=== PATIENT | male | born 1960 | race Caucasian/White ===

== ENCOUNTER → 2024-01-08 08:05 | Outpatient (REF) | payer BC, SELFPAY | LOC: HWRAD 08:05 | PROVIDERS: ATTENDING PHYSICIAN Orthopaedic Surgery | DX: M19.012 Primary osteoarthritis, left shoulder (principal) | CPT/HCPCS: 73200 ==

== ENCOUNTER 2024-10-01 02:05 | Emergency (ER) | payer OTHER, SELFPAY ==
[2024-10-01 02:11] VITALS: BP 154/86
[2024-10-01 04:21] VITALS: BP 113/74
--- NOTE | 2024-10-01 04:22 | ED.GENMED ---
History of Present Illness
General
Chief Complaint: Ear Problem
Source: patient
Exam Limitations: none
Time Seen by Provider: 10/01/24 04:11
Nursing documentation reviewed up to this point in time: agreed with
History of Present Illness
History of Present Illness:
This is a 64-year-old gentleman with history of hypertension, hyperlipidemia, intermittent sinus congestion and admits to following with his ENT specialist sporadically.
He admits to onset of cold symptoms, congestion of sinuses and ears, 1 week ago and was evaluated at urgent care where he was placed on a 5-day course of an antibiotic which he believes was Augmentin, finished yesterday. He was also placed on
Flonase nasal spray to be used for 30 days. He admits that nasal congestion, cough have improved but he continues with some left ear discomfort, intermittent brief crackling and has had intermittent brief ringing in his ear that it was initially
mild but now persistent since yesterday evening. He denies dizziness nor lightheadedness, no significant pain, no fever no chills, no headache, no weakness or numbness.
He admits to mildly decreased hearing in his left ear over the past week, unchanged.
Past History
Past History
ED Past Medical History: HTN and Hypercholesterolemia
ED Past Surgical History: Orthopedic
Social History
Tobacco: Non-smoker
Personal:
Living: with family
Employment: Employed
Family History
Family History: Other (Noncontributory)
Phy Exam
Physical Exam
Physical Exam:
GENERAL: 64-year-old gentleman appears somewhat younger than stated age, bright and alert, pleasant, appears in no acute distress.
EYE: pupils equal and reactive. anicteric
NECK: Supple, nontender, no meningismus, no significant adenopathy.
ENT: posterior pharynx is clear, oral mucosa is moist. TMs bilaterally without injection nor retraction. There is scant clear effusion behind the left TM. Nares have mildly boggy turbinates without mucopus nor rhinorrhea.
CARDIAC: Regular rate and rhythm. no murmur.
LUNGS: Clear breath sounds bilaterally, no acute respiratory distress, no wheezes/rales/rhonchi
ABDOMEN: Soft, nondistended, without focal tenderness
NEUROLOGICAL: Alert and oriented x3, no focal neuro deficits. Gait is morales and steady.
SKIN: Warm and dry, normal color, skin intact. No rash.
MUSCULOSKELETAL: No C/C/E. peripheral pulses are full and equal b/l. No palpable tenderness.
PSYCH: Normal and appropriate interaction.
Course
Orders/Labs/Results
Orders:
Orders
10/01/24 04:21
Prednisone [Deltasone] 50 mg PO NOW STA
Vital Signs
Initial and Last Documented VS:
Initial Vital Signs
Temp Pulse Resp BP Pulse Ox
98 F 56 20 154/86 98
10/01/24 02:11 10/01/24 02:11 10/01/24 02:11 10/01/24 02:11 10/01/24 02:11
Last Documented Vital Signs
Temp Pulse Resp BP Pulse Ox
98 F 56 20 154/86 98
10/01/24 02:11 10/01/24 02:11 10/01/24 02:11 10/01/24 02:11 10/01/24 02:11
MDM/Problems Addressed
Differential Diagnosis Includes:
Acute tinnitus left ear appears viral URI, serous otitis media in nature.
Other consideration is sensorineural hearing loss.
No accompanying vertigo thus M�ni�re's disease is unlikely.
No history of immunocompromise no history of chronic sinusitis.
Overall well in appearance.
At this point no indication for laboratory studies nor imaging.
Will treat with a course of prednisone and recommend he continue Flonase nasal spray.
Recommend prompt follow-up with ENT for recheck.
Chronic conditions affecting care: HTN
*Pulse Oximetry
SaO2: 98
Oxygen Mode of Delivery: Room air
Patient hypoxic: no
*Critical Care Note
Total Time (30-74mins, 75-104mins- exclusive of procedures): Not Applicable
ED Attending Note
-
Portions of this chart may have been created with voice recognition software.� Occasional wrong word or��sound alike� substitutions may have occurred due to the inherent limitations of voice recognition software.
Discharge Plan
Departure
Patient Disposition: Home (Routine Discharge)
Date of Disposition: 10/01/24
Time of Disposition: 04:22
Patient with high blood pressure during this ER visit?: No
Condition: Good
Discharge Problem:
Tinnitus of left ear
Instructions: Tinnitus (ringing in the ears)
Prescriptions:
New
prednisone 10 mg Tablet
See Rx Instructions .ROUTE .COMPLEX Qty: 30 0RF
Rx Instructions:
Take By Mouth:
40 mg daily x3 days, 30 mg daily x3 days,
20 mg daily x3 days, 10 mg daily x3 days.
Activity Restrictions/Additional Instructions:
Continue fluticasone nasal spray, 2 sprays each nostril once daily.
Along with this you have been prescribed a tapering course of prednisone. Follow the instructions on the bottle.
Follow-up with your ENT specialist for recheck.
Interventions
Interventions:
*Risk Screen - Suicide Last Done: 10/01/24 02:11
*Neglect/Abuse Screening Last Done: 10/01/24 02:11
Discharge Date and Time
Print Language: GUAMANIAN
[2024-10-01 04:23] VITALS: BMI 32.5
[2024-10-01] MEDS: DELTASONE 50 MG PO (04:29)
== END 2024-10-01 04:50 | disposition home or self-care (01) ==
LOC: EMR 02:05
PROVIDERS: EMERGENCY PHYSICIAN Emergency Medicine
DX: H93.12 Tinnitus, left ear (principal); E78.00 Pure hypercholesterolemia, unspecified; I10 Essential (primary) hypertension
CPT/HCPCS: 99282

== ENCOUNTER 2024-10-06 13:25 | Observation (INO) | payer OTHER, SELFPAY ==
[2024-10-06] VITALS (11 sets, daily range): BP systolic 102–148; BP diastolic 58–87; BMI 32.8; BMI 31.4
--- NOTE | 2024-10-06 07:26 | ED.GENMED ---
History of Present Illness
General
Chief Complaint: Visual Problem
Source: patient
Exam Limitations: none
Time Seen by Provider: 10/06/24 07:22
Nursing documentation reviewed up to this point in time: agreed with
History of Present Illness
History of Present Illness:
Patient is a 64-year-old male with past medical history of hypertension hyperlipidemia sinus issues presents to the ER for evaluation. Patient reports for about a week and a half he has had intermittent ringing in his ears for about a week and a
half. This started after cold symptoms. He was seen here in the ER and diagnosed with tinnitus and started on steroids. He is on his 6-day of steroid. Patient reports yesterday he he was driving and noticed that his left eye was blurring and in
the center of his left eye vision he sees a black circular appearance. He reports it was the new visual disturbance which prompted him to come to the ER. He also mentions that he does have a mild headache and he incidentally notes that yesterday
evening he had an episode of left hand numbness and tingling. He reports if he felt he slept on it.
He denies any upper or lower extremity weakness.
Past History
Past History
ED Past Medical History: HTN and Hypercholesterolemia
ED Past Surgical History: Orthopedic
Social History
Tobacco: Non-smoker
Personal:
Living: with family
Employment: Employed
Family History
Family History: Other (Noncontributory)
Phy Exam
General Physical Exam
General Presentation: no apparent distress
General age: appears stated age
General Skin: warm and dry
General Habitus: normal
General Mental: alert
General Hydration: appears well hydrated
Eye Exam
Eye Exam: PERRL and EOMI
Eye Exam General: PERRL: bilateral and EOM intact: bilateral
Pupil Exam: Bilateral: round and reactive
Neurological Exam
Neurological Exam: alert, oriented x3, no motor deficits, normal reflexs, no sensory deficits and speech normal
Musculoskeletal Exam
Musculoskeletal Exam: full ROM
Skin Exam
Skin Exam: normal color and warm/dry
Psychiatric Exam
Psychiatric Exam: normal mood/affect
Course
Orders/Labs/Results
Orders:
Orders
10/06/24 07:47
CT Head W/o Iv Contrast Urgent
Comment:
Reason For Exam: headache, left eye visual disturbance
10/06/24 07:52
Electrocardiogram (*1) Stat
Reason for Study: Other
Other Reason for Exam: chest pain
Cardiac Monitoring- Treatment ONCE
EKG- Treatment ONCE
IV Insert/Care/Rem.- Treatment PRN
10/06/24 08:04
Cardiovascular Evaluation Urgent
Comment: ADD
Complete Blood Count/With Diff Urgent
Comprehensive Metabolic Panel Urgent
10/06/24 09:55
CT Head & Neck Angio W/wo IV Routine
Comment: please add on CTV
Reason For Exam: right eye vision loss
10/06/24 09:57
Add On- LAB Routine
Tests Added?: lipid panel
10/06/24 09:59
MR Brain Without Contrast Routine
Comment:
Reason For Exam: right eye vision changes
Recent pill cam endoscopy?: No
10/06/24 11:00
Aspirin Low Dose EC [Aspir Low (Enteric Coated)] 81 mg PO DAILY
Clopidogrel Bisulfate [Plavix] 75 mg PO DAILY
10/06/24 11:12
Consult Neurology [NEUROLOGY CONSULT] Urgent
Consulting Provider: Bubba Hills
Was physician already notified: Yes
10/06/24 18:00
Atorvastatin [Lipitor] 40 mg PO QPM
Abnormal Lab Results
10/06/24
08:04
Absolute Monos (auto) 0.8 H 10^3/uL
(0.1-0.6)
Potassium 3.2 L mmol/L
(3.5-5.1)
Chloride 97 L mmol/L
(98-107)
Carbon Dioxide 35 H mmol/L
(22-30)
Glucose 131 H mg/dl
(70-99)
ALT 57 H U/L
(0-50)
Albumin 5.1 H g/dl
(3.5-5.0)
10/06/24 08:04
10/06/24 08:04
Vital Signs
Initial and Last Documented VS:
Initial Vital Signs
Temp Pulse Resp BP Pulse Ox
97.9 F 68 18 148/79 99
10/06/24 07:08 10/06/24 07:08 10/06/24 07:08 10/06/24 07:08 10/06/24 07:08
Last Documented Vital Signs
Temp Pulse Resp BP Pulse Ox
97.9 F 70 17 126/86 94
10/06/24 07:08 10/06/24 11:33 10/06/24 11:33 10/06/24 11:33 10/06/24 11:33
Glove Parts Cutter consulted with Physician
Gl[employer] Cutter consulted with physician?: Yes
Name of Physician Consulted: monica
MDM/Problems Addressed
Differential Diagnosis Includes:
Not limited to stroke, central venous embolism, migraine
MDM/Problems Addressed:
As documented patient is a 64-year-old male with history of hypertension hyperlipidemia on testosterone presents for evaluation. Patient started with tinnitus over a week and a half ago and yesterday while driving had an episode of left eye visual
disturbance. He describes seeing a black spot in the center of his vision vision is blurry he does not feel that it totally obscures his vision. He also adds that he had an intermittent episode of paresthesia to his left hand. He presents awake
alert no acute distress no focal deficits no visual deficit or visual field disturbance. He was evaluated by neurology and concern for central venous thrombosis. CT head CT head and neck angio were all negative he is ordered MRI. He was ordered
aspirin Lipitor Plavix by neurology and MRI. Will admit for evaluation MRI pending.
*Radiology
Radiology exam reviewed: radiology read reviewed
*Pulse Oximetry
SaO2: 99
Oxygen Mode of Delivery: Room air
Patient hypoxic: no
*Critical Care Note
Total Time (30-74mins, 75-104mins- exclusive of procedures): Not Applicable
Patient Management
Discussion with other providers: [employer] Supervisor (neuro Dr Hills )
ED Attending Note
-
Portions of this chart may have been created with voice recognition software.� Occasional wrong word or��sound alike� substitutions may have occurred due to the inherent limitations of voice recognition software.
Discharge Plan
Departure
Patient Disposition: Admit
Date of Disposition: 10/06/24
Time of Disposition: 12:40
Admit to: Telemetry
Admit to doctor: hospitalist
Presentation/result/management discussed w/ accepting MD/DO: Hospitalist
Condition: Fair
Covid-19: Not Applicable
Discharge Problem:
Visual disturbance, Headache, Tinnitus, left
Prescriptions:
No Action
prednisone 10 mg Tablet
See Rx Instructions .ROUTE .COMPLEX Qty: 30 0RF
Rx Instructions:
Take By Mouth:
40 mg daily x3 days, 30 mg daily x3 days,
20 mg daily x3 days, 10 mg daily x3 days.
Theragen Tablet
1 tab PO DAILY
chlorthalidone 25 mg Tablet
25 mg PO DAILY
amlodipine [Norvasc] 10 mg Tablet
10 mg PO DAILY
testosterone cypionate 200 mg/mL oil
50 mg IM Q2W
Rx Instructions:
the 15th and 30th of each month
rosuvastatin [Crestor] 10 mg Tablet
10 mg PO HS
tadalafil 5 mg Tablet
5 mg PO QPM
elderberry fruit 350 mg Capsule
350 mg PO DAILY
Referrals:
NONE,* [Family Provider, Internal Medicine]
Interventions
Interventions:
*Risk Screen - Suicide Last Done: 10/06/24 07:08
*General Assessment Last Done: 10/06/24 07:08
*Neglect/Abuse Screening Last Done: 10/06/24 07:08
*ED COVID-19 Vaccine History Last Done: 10/06/24 07:08
ED- Neurological Assessment Last Done: 10/06/24 08:08
ED-EENT Assessment Last Done: 10/06/24 07:49
ED Swallowing Screen Last Done: 10/06/24 11:26
Discharge Date and Time
Print Language: NEPALI
[2024-10-06 08:10] LABS: Hematocrit 51.2 % (39.0-52.0); Hemoglobin 17.7 g/dL (13.0-18.0); Mean Corp Hgb Conc. 34.6 g/dL (33.0-37.0); Mean Corpuscular Volume 84.2 fL (80.0-94.0); Nucleated Red Blood Cells % 0 % (-); Platelet Count 269 10^3/uL (130-400); Red Cell Dist. Width 13.2 % (11.5-14.5)
[2024-10-06 08:31] LABS: ALT (SGPT) 57 U/L (0-50); AST (SGOT) 41 U/L (17-59); Albumin 5.1 g/dl (3.5-5.0); Alkaline Phosphatase 62 U/L (38-126); Blood Urea Nitrogen 16 mg/dl (9-20); Calcium 9.7 mg/dl (8.4-10.2); Carbon Dioxide 35 mmol/L (22-30); Chloride 97 mmol/L (98-107); Estimated Creatinine Clearance 73 ml/min; Glucose 131 mg/dl (70-99); Potassium 3.2 mmol/L (3.5-5.1); Sodium 140 mmol/L (135-145); Total Protein 7.7 g/dl (6.3-8.2); eGFR > 60.00
--- NOTE | 2024-10-06 09:40 | CON.NEURO ---
Addendum entered and electronically signed by Bubba Hills MD 10/06/24 11:30:
Studies reviewed.
I have personally examined the patient. I reviewed and agree with the TOUR DRIVER's Note.
My addenda:
Awake, alert, interactive. No acute distress.
Speech intact.
Follows 2-step requests w/o difficulty. No tremor.
Extra-ocular movements grossly intact.
Facial movements full and symmetric. Hearing intact to normal conversational volume.
Normal UE movements bilaterally.
Neck: full ROM.
Chest: no dyspnea
Heart: no JVD
Ext: (-) Clubbing, (-) Cyanosis, (-) Edema
IMPRESSIONS/RECOMMENDATIONS:
Abrupt onset of central visual loss with recent upper respiratory tract illness which was followed by tinnitus and today's headache with the previously mentioned visual change
Differential diagnosis includes central venous thrombosis, migraine with aura, acute ischemic stroke
Check CT venogram
Check MRI of brain
Provide both aspirin and clopidogrel until determination regarding possible ischemia can be decided
Initiate atorvastatin due to LDL greater than 70 and the possibility of an ischemic injury
Ophthalmology evaluation for possible central retinal artery occlusion
Normotension as a goal
Normoglycemia
D/W patient
All questions answered.
Will continue to follow patient.
Original Note:
Documented by User: Apoorva Rene NP 10/06/24 11:00
Neuro Assessment/Plan
Assessment
Patient is a 64-year-old right-handed male with past medical history of hypertension, hyperlipidemia presented to the [facility] on 10/06/2024 for evaluation of left eye vision changes.
Head CT: There are mild changes of cortical atrophy. There is mucosal thickening suggesting chronic sinusitis
Head and neck CTA/CTV: pending
Brain MRI: pending
Labs: Cholesterol 170, LDL 75
Plan
Impressions: abrupt onset of left eye vision changes most likely due to retinal artery occlusion vs migraine with aura
-check MRI brain without contrast to evaluate for stroke
-CTA/CTV head and neck
-BP goal is normotension.
-start ASA 81mg and clopidogrel 75 mg daily
-LDL 75 with goal <70, start atorvastatin 40 mg nightly
-PT/OT/ST evaluations
-DVT prophylaxis
-continue neurochecks and NIHSS per unit guidelines
-education material to be provided
All questions encouraged and answered, plan of care discussed with Dr. Hills, hospitalist, nurse and patient
Consultation
Order
Date of Consultation: 10/06/24
Requesting Provider: hospitalist
Reason for Consult: left eye vision changes
Subjective/Objective
Subjective Data
Date of Service: October 06, 2024
Patient is a 64-year-old right-handed male with past medical history of hypertension, hyperlipidemia presented to the [facility] on 10/06/2024 for evaluation of left eye vision changes. He states he had tinnitus which started in left ear 2 weeks ago when
he had an upper respiratory infection. Went to urgent care and was given an antibiotic and nasal spray. Currently on 6th day of steroids. Continues with tinnitus, yesterday at work at 8 am noticed vision changes in left eye along with headache and
pressure on left side. Pain 5-6/10. When he closes his eye he feels more pressure. Sees black red devil at the top of his vision and can see through it. He notes that yesterday evening he had an episode of left hand numbness and tingling. He reports
he felt he slept on it. States he usually does not get headaches, no history of migraines. Headaches usually pressure feeling across his forehead, triggers include dehydration. Currently denies headache, nausea, dizziness. Denies weakness to upper
or lower extremities. Denies neck/back pain. Denies issues with chewing or swallowing. Denies issues with bowel/bladder. Denies photophobia or phonophobia. Denies dyspnea or chest pain. Head CT showed mild changes of cortical atrophy mucosal
thickening suggesting chronic sinusitis. Lab work so far unremarkable. Not a TNK/IAT candidate out of window and NIHSS 1.
Objective Data
Vital Signs
Temp Pulse Resp BP Pulse Ox
97.9 F 60 20 119/78 95
10/06/24 07:08 10/06/24 08:06 10/06/24 08:06 10/06/24 08:06 10/06/24 08:06
Lab Results
10/06/24 08:04
10/06/24 08:04
Sodium 140 mmol/L (135-145) 10/06/24 08:04
Potassium 3.2 mmol/L (3.5-5.1) L 10/06/24 08:04
BUN 16 mg/dl (9-20) 10/06/24 08:04
Glucose 131 mg/dl (70-99) H 10/06/24 08:04
Calcium 9.7 mg/dl (8.4-10.2) 10/06/24 08:04
Patient Allergies
No Known Allergies Allergy (Verified 10/06/24 07:14)
CVA Assessment
Onset of Stroke Symptoms
Onset of symptoms known: Yes
Date of onset of symptoms: 10/05/24
Time of onset of symptoms: 08:00
Time pt last seen normal is known: Yes
Date last time pt seen normal: 10/05/24
Time last time pt seen normal: 08:00
NIH Stroke Score
Level of Consciousness: 0 - Alert
LOC Questions: 0-Answers both correctly
LOC Commands: 0-Performs both correctly
Best Horizontal Gaze: 0-Normal
Visual Grayosn: 1=Partial hemianopia
Facial Palsy: 0=Normal, symmetrical
Motor - Right Arm: 0=No drift 10 seconds
Motor - Left Arm: 0=No drift 10 seconds
Motor - Right Le-No drift 5 seconds
Motor - Left Le-No drift 5 seconds
Limb Ataxia: 0-Absent
Sensation: 0-Normal
Best Language: 0-No aphasia
Dysarthria: 0-Normal
Extinction and Inattention: 0-No abnormality
NIH Total Score:: 1
Tenecteplase Contraindications
Inclusion and Exclusion criteria reviewed: Yes
Reasons for NON-Tx with Thrombolytics ABSOLUTE Exclusions: Time-out of window
IAT Contraindications: >6 hrs from onset/last seen normal and NIHSS < 6
Modified Rianna Score (MRS)
-
Modified Jericho Scale (mRS): No symptoms
Score: 0
Review of Systems
-
History Source: Patient
Constitutional: No Symptoms
EENT: Eye Pain (pressure OS), Decreased Vision (OS) and Tinnitis (left)
Respiratory: No Symptoms
Cardiac: No Symptoms
Abdomen/GI: No Symptoms
Genitourinary: No Symptoms
Musculoskeletal: No Symptoms
Skin: No Symptoms
Neuro: No Symptoms
Physical Exam
-
General: No Apparent Distress, Comfortable and Appears Stated Age
Eyes: PERRLA
HEENT: Normocephalic, Atraumatic and Anicteric
Neck: Full Range of Motion
Respiratory: No Dyspnea
Cardiac: No JVD
GI: Non-distended
Skin: Unremarkable
Extremities: No Clubbing, No Cyanosis and No Edema
Psych: Unremarkable
Extended Neurological Exam
Mood & Affect: Mood Unremarkable
Attention Span & Concentration: Awake, Alert, Interactive and No Difficulty with 2 Step Request
Memory: Unremarkable
Tremor: Hand Tremor Absent and Head Tremor Absent
Speech: Quality Unremarkable, Quantity Unremarkable and Rate of Production Unremarkable
Cranial Nerve II: Left Eye: Visual Grayson Grossly Intact
Cranial Nerve II: Right Eye: Visual Grayson Intact
Cranial Nerves III, IV, : Extraocular Movement: Extraocular Movement Full in all Directions
Cranial Nerve VII: Facial Symmetry: Normal Facial Symmetry
Cranial Nerve VIII: Hearing: Unremarkable Hearing to Normal Conversational Volume
Cranial Nerve XI: Shoulder Shrug: Unremarkable
Muscle Strength, Overall: Full Throughout
Pronator Drift: No Drift in Upper Extremities and No Drift in Lower Extremities
Coordination: [id number] Testing Unremarkable and Reaches for Objects without Difficulty
Data Reviewed
-
CT-A: Ordered
CT Head: Report Reviewed and Image Reviewed
MRI Head: Ordered
Labs: Report Reviewed
Lipid Profile: Ordered
Reviewed with: Physician, Nurse and Patient
Old Records: Summarized
Medications
-
Home Medications
�Medication �Instructions �Recorded
prednisone 10 mg tablet See Rx Instructions .Route 10/01/24
.COMPLEX #30 tabs
Past History
Past History
ED Past Medical History: HTN and Hypercholesterolemia
ED Past Surgical History: Orthopedic
Family/Social History
Tobacco: Non-smoker
Personal:
Living: with family
Employment: Employed
Family History: Other (Noncontributory)

Documented by User: Bubba Hills MD 10/06/24 11:26
CVA Assessment
NIH Stroke Score
NIH Total Score:: 1
Modified Jericho Score (MRS)
-
Score: 0
Past History
Past History
ED Past Medical History: HTN and Hypercholesterolemia
ED Past Surgical History: Orthopedic
Social History
Tobacco: Non-smoker
Personal:
Living: with family
Employment: Employed
Family History
Family History: Other (Reviewed and noncontributory)
[2024-10-06 10:29] LABS: HDL Cholesterol 70 mg/dl; LDL Cholesterol, Calculated 75 mg/dl; Very Low Density Lipoprotein 25 mg/dl (0-30)
[2024-10-06] MEDS: ASPIR LOW (ENTERIC COATED) 81 MG PO (11:30)
[2024-10-06] MEDS: PLAVIX 75 MG PO (11:31)
--- NOTE | 2024-10-06 12:41 | HPS.HSE ---
Family Physician
-
Family Physician: * NONE
Chief Complaint
-
Tinnitus, headaches, left visual changes
History of Present Illness
Patient is a pleasant 64 years old with history of hypertension, hyperlipidemia, who came to the ER with increased left sided tinnitus and left eye vision changes.
Patient had upper respiratory tract infection 10 days ago, went to urgent care and prescribed antibiotic in form of amoxicillin and nasal decongestion, continue to have left ear ringing, then into the ER on October 01 and prescribed 12 days of oral
steroid with no improvement, then yesterday started to have left visual changes.
Patient seen and examined at bedside, denies any chest pain or shortness of breath, no abdominal pain, no nausea, no vomiting, no diarrhea or constipation.
Patient seen by neurology in the ER recommending MRI and CT venogram. Patient was given aspirin/Plavix/statin and will be admitted under hospitalist.
Medical History
Past Medical History
Past Medical History: Reports HTN and Hypercholesterolemia
Past Surgical History: Reports Orthopedic and Other
Additional Past Surgical History:
Bilateral shoulder replacement, bilateral hip replacement, vasectomy
Social History
Tobacco: Non-smoker
Alcohol: None
Drug: None
Personal:
Living: With Family
Employment: Employed
Family History
Family History: Sudden (Father suddenly at the age of 71)
Allergies / Home Medications
Allergies reflects when Allergies were last updated in [employer]
Home Medications with original date entered in [employer]
Allergy/Medication List:
Allergies
Allergy/AdvReac Type Severity Reaction Status Date / Time
No Known Allergies Allergy Verified 10/06/24 07:14
Home Medications
prednisone 10 mg tablet See Rx Instructions .Route .COMPLEX #30 tabs 10/01/24
amlodipine 10 mg tablet (Norvasc) 10 mg PO DAILY 10/06/24
chlorthalidone 25 mg tablet 25 mg PO DAILY 10/06/24
elderberry fruit 350 mg capsule 350 mg PO DAILY 10/06/24
rosuvastatin 10 mg tablet (Crestor) 10 mg PO HS 10/06/24
tadalafil 5 mg tablet 5 mg PO QPM 10/06/24
testosterone cypionate 200 mg/mL intramuscular oil 50 mg IM Q2W 10/06/24
therapeutic multivitamin 1 tab PO DAILY 10/06/24
Review of Systems
-
A 12 point ROS was completed and negative except as noted: Yes
Constitutional: Denies Fever, Weight Gain, Weight Loss, Fatigue or Sleep Disturbance
EENT: Reports Other (Left ear ringing, left blurry vision); Denies Tearing, Sore Throat, Mouth Pain, Mouth Swelling or Runny Nose
Respiratory: Denies Cough, Hemoptysis or Trouble Breathing
Cardiac: Denies Chest Pain, Diaphoresis, Palpitations or Syncope
Abdomen/GI: Denies Abdominal Pain, Nausea, Vomiting, Diarrhea, Constipated, Bloody Stools or Black Stools
: Denies Dysuria, Frequency, Flank Pain, Incontinence, Difficulty Voiding, Urgency, Bleeding or Dark Urine
Musculoskeletal: Denies Joint Pain, Joint Swelling, Muscle Pain, Muscle Stiffness or Edema
Skin: Denies Itching or Rash
Neurological: Reports Headache; Denies Dizzy, Weakness or Numbness
Endocrine: Denies Polyuria, Polydipsia or Temp Intolerance
Hematologic/Lymphatic: Denies Bleeding, Swollen Glands or Bruising
Psych: Reports Calm; Denies Depression, Anxiety or Panic Disorder
Physical Exam
Vital Signs
Vital Signs
Temp Pulse Resp BP Pulse Ox
97.9 F 70 17 126/86 94
10/06/24 07:08 10/06/24 11:33 10/06/24 11:33 10/06/24 11:33 10/06/24 11:33
Physical Exam
General: Well Developed, Well Nourished, No Apparent Distress, Comfortable and Good Appetite; No Pain, Chills or Sweats
HEENT: NormoCephalic, Moist mucous membranes, Atraumatic, Good Dentition, PERRLA and Nose Appears Normal; No Ears Appear Normal (Bulging left tympanic membrane)
Respiratory: Clear
Cardiac: S1/S2 and Regular Rhythm
Breast: Deferred by me
GI: Soft, Non Tender, Non Distended and Normal Bowel Sounds
Genito-urinary: Deferred by me
Musculoskeletal: No Clubbing, No Cyanosis and No Edema
Skin: Warm; No Rash, Jaundice, Ulcers, Lesions or Decubitus Ulcers
Neuro: Awake, Alert, Oriented, AO x 3, No Motor Deficits, Nonfocal/grossly intact and Cranial Nerves Intact
Hematologic/Lymphatic: No Lymphadenopathy
Psych: Calm
Laboratory Results
-
10/06/24 08:04
10/06/24 08:04
Laboratory Results
Total Bilirubin 1.2 mg/dl (0.2-1.3) 10/06/24 08:04
AST 41 U/L (17-59) 10/06/24 08:04
ALT 57 U/L (0-50) H 10/06/24 08:04
Alkaline Phosphatase 62 U/L (38-126) 10/06/24 08:04
Data Reviewed
-
Diagnostic Radiology: Report Reviewed by me
CT Scan: Report Reviewed by me
Medical Tests (Nuc Med, Echo, EKG etc): Report Reviewed by me
Lab Data: Labs Reviewed by me
Old Records: Reviewed
Impression/Plan
-
IMPRESSION:
Patient is a pleasant 64 years old with history of hypertension, hyperlipidemia, who came to the ER with increased left sided tinnitus and left eye vision changes.
Patient had upper respiratory tract infection 10 days ago, went to urgent care and prescribed antibiotic in form of Amoxil and nasal decongestion, continue to have left ear ringing, then into the ER on October 01 and prescribed 12 days of oral steroid
with no improvement, then yesterday started to have left visual changes.
Assessment/plan:
Left visual changes/left ear tinnitus, rule out CVA
CT head done in the ER shows:
The ventricles and cortical sulci are mildly dilated. There is no shift of midline structures. There are no mass lesions or mass effect. There is no evidence of hemorrhage.
There is mucosal thickening in the right ethmoid and sphenoid sinuses. The skull appears intact.
CTA head and neck shows :
No findings to suggest carotid arterial system narrowing or hemodynamically significant stenosis bilaterally.
No findings to suggest internal carotid artery or vertebral artery dissection bilaterally.
No findings to suggest proximal intracranial arterial stenosis bilaterally.
Paranasal sinus opacification most likely chronic and most prominent involving the right maxillary sinus compatible with chronic inflammatory changes. Right maxillary sinus air-fluid level such as superimposed acute sinusitis unlikely but cannot be
entirely excluded
Admit to telemetry bed.
Frequent neurocheck.
Allow permissive hypertension.
Neurology consult.
MRI brain pending.
MRV pedning
Check hemoglobin A1c, fasting lipid panel.
PT/OT consult.
Aspirin/Plavix/statin
Upper respiratory tract infection
Acute on chronic sinusitis
Left-sided otitis media
Continue prednisone for now.
Patient already completed Augmentin as OP
Nasal decongestant
History of hypertension
Hold home meds for now to allow permissive hypertension.
History of hyperlipidemia
Continue statin
On testosterone injection
Next dose in October 14
History of elevated hemoglobin/RBCs
No definitive diagnosis, genetic testing were negative as outpatient as per the patient and .
Continue baby aspirin
CODE STATUS: Full code
DVT prophylaxis: Lovenox
Diet: Regular diet.
Total time spent on today's encounter was 75 minutes which included time spent in counseling the patient/family regarding diagnosis and treatment plan as listed above, goals of care, and symptom management. Case was discussed with nursing staff,
specialists, and care coordinators/case management. All labs and imaging personally reviewed by me. Remainder the time spent in detailed review of previous records, lab data, imaging, and other medical provider documentation.
[2024-10-06] MEDS: DELTASONE PO (18:10)
[2024-10-06] MEDS: LOVENOX 40 MG SC (18:12)
[2024-10-07 03:32] VITALS: BP 118/73
[2024-10-07 07:57] LABS: Hematocrit 52.4 % (39.0-52.0); Hemoglobin 17.7 g/dL (13.0-18.0); Mean Corp Hgb Conc. 33.8 g/dL (33.0-37.0); Mean Corpuscular Volume 84.7 fL (80.0-94.0); Nucleated Red Blood Cells % 0 % (-); Platelet Count 288 10^3/uL (130-400); Red Cell Dist. Width 13.3 % (11.5-14.5)
[2024-10-07 08:02] VITALS: BP 112/72
[2024-10-07] MEDS: PLAVIX 75 MG PO (08:07)
[2024-10-07] MEDS: DELTASONE 30 MG PO (08:07)
[2024-10-07] MEDS: NORVASC 10 MG PO (08:07)
[2024-10-07] MEDS: ASPIR LOW (ENTERIC COATED) 81 MG PO (08:08)
[2024-10-07 08:38] LABS: Blood Urea Nitrogen 17 mg/dl (9-20); Calcium 9.4 mg/dl (8.4-10.2); Carbon Dioxide 32 mmol/L (22-30); Chloride 99 mmol/L (98-107); Estimated Creatinine Clearance 65 ml/min; Glucose 96 mg/dl (70-99); Potassium 3.9 mmol/L (3.5-5.1); Sodium 138 mmol/L (135-145); eGFR > 60.00
--- NOTE | 2024-10-07 09:36 | W.PN.NEURO.1 ---
Documented by User: Becca Shine NP 10/07/24 10:48
Today's Communication / Plan
-
.
Neuro Assessment/Plan
Assessment
Patient is a 64-year-old right-handed male with past medical history of hypertension, hyperlipidemia presented to the [facility] on 10/06/2024 for evaluation of left eye vision changes, left head discomfort, and left ear tinnitus.
-CT Head 10/06/24: There are mild changes of cortical atrophy. There is mucosal thickening suggesting chronic sinusitis
-CTA Head/Neck 10/06/24: No findings to suggest carotid arterial system narrowing or hemodynamically significant stenosis bilaterally. No findings to suggest internal carotid artery or vertebral artery dissection bilaterally. No findings to suggest
proximal intracranial arterial stenosis bilaterally. Paranasal sinus opacification most likely chronic and most prominent involving the right maxillary sinus compatible with chronic inflammatory changes. Right maxillary sinus air-fluid level such as
superimposed acute sinusitis unlikely but cannot be entirely excluded.
-MRI Brain 10/06/24: No evidence of acute intracranial abnormality. Paranasal sinus disease as described. This includes an air-fluid level within the right maxillary sinus, raising the possibility of acute sinusitis. Please correlate clinically.
Moderate to large amount of increased T2-weighted signal within the mastoid air cells bilaterally. Most commonly this is from benign trapped fluid, but please correlate with any clinical symptoms to suggest acute mastoiditis.
-MRV/A Head 10/06/24: MR arteriography of the intracranial circulation is within normal limits. On MR venography phase contrast imaging, there is no evidence for venous sinus thrombosis.
Labs: Cholesterol 170, LDL 75
I. Abrupt onset of left eye vision changes possibly due to retinal artery occlusion vs migraine with aura.
II. MRI Brain, CTA head/neck, and MRV head negative for structural brain and large vessel abnormality producing symptoms.
III. MRI brain suggestive of acute right maxillary sinusitis and a moderate-large amount of mastoid air cell signal change suggestive of acute mastoiditis.
Plan
-Provide rizatriptan 10mg x1 now for headache.
-Continue DAPT with aspirin 81mg and clopidogrel 75mg daily for 21 days; after 21 days, discontinue clopidogrel and continue aspirin 81mg daily indefinitely.
-BP goal is normotension.
-LDL 75 with goal <70, recommend atorvastatin 40 mg nightly.
-Goal normoglycemia.
-Checking blood work for metabolic abnormalities.
-Provide patient with a stroke education packet.
-PT/OT evaluations
-DVT prophylaxis
All questions encouraged and answered, plan of care discussed with Dr. Hills, the patient, patient's spouse.
Subjective/Objective
Subjective Data
Date of Service: October 07, 2024
Patient reports no change in his symptoms today. He rate his left-sided head discomfort a 5/10. His left ear tinnitus persists and the opaque [place] in his central left eye vision persists. He denies any dizziness, speech/swallow difficulty,
numbness, and weakness.
Objective Data
Vital Signs
Temp Pulse Resp BP Pulse Ox
98.1 F 57 18 112/72 98
10/07/24 08:02 10/07/24 08:02 10/07/24 08:02 10/07/24 08:02 10/07/24 08:02
Lab Results
10/07/24 07:04
10/07/24 07:04
Sodium 138 mmol/L (135-145) 10/07/24 07:04
Potassium 3.9 mmol/L (3.5-5.1) 10/07/24 07:04
BUN 17 mg/dl (9-20) 10/07/24 07:04
Glucose 96 mg/dl (70-99) 10/07/24 07:04
Calcium 9.4 mg/dl (8.4-10.2) 10/07/24 07:04
LDL Cholesterol, Calc 75 mg/dl 10/06/24 08:04
Patient Allergies
atorvastatin (From Lipitor) Allergy (Verified 10/06/24 18:15)
Swelling/angioedema
LDL Level: >70, statin ordered
Review of Systems
-
History Source: Patient
Respiratory: Negative Cough or Trouble Breathing
Cardiac: Negative Chest Pain or Palpitations
Abdomen/GI: Negative Nausea
Neuro: Headache; Negative Dizzy, Weakness, Numbness, Ataxia, Tremors or Speech Problem
Physical Exam
-
General: Well Developed, Well Nourished and No Apparent Distress
Eyes: No Ptosis and PERRLA
HEENT: Normocephalic and Atraumatic
Neck: Full Range of Motion
Respiratory: No Dyspnea
GI: Non-distended
Extended Neurological Exam
Mood & Affect: Mood Unremarkable and Affect Unremarkable
Attention Span & Concentration: Awake, Alert and Interactive
Memory: Unremarkable and Able to Recall
Tremor: Hand Tremor Absent and Head Tremor Absent
Involuntary Movement: None
Speech: Quality Unremarkable, Quantity Unremarkable and Rate of Production Unremarkable
Cranial Nerve II: Left Eye: Pupillary Reactivity Unremarkable, Pupillary Size Unremarkable and Visual Grayson Intact
Cranial Nerve II: Right Eye: Pupillary Reactivity Unremarkable, Pupillary Size Unremarkable and Visual Grayson Intact
Cranial Nerves III, IV, : Extraocular Movement: Extraocular Movement Full in all Directions
Cranial Nerve V: Facial Sensation: Intact to Light Touch
Cranial Nerve VII: Facial Symmetry: Normal Facial Symmetry
Cranial Nerve VIII: Hearing: Unremarkable Hearing to Normal Conversational Volume
Cranial Nerves IX, X: Palate Movement: Palate Elevation Symmetric
Cranial Nerve XI: Shoulder Shrug: Unremarkable
Cranial Nerve XII: Tongue Protusion: Midline
Muscle Strength, Overall: Full Throughout
Muscle Bulk & Tone: Bulk Unremarkable and Tone Unremarkable
Pronator Drift: No Drift in Upper Extremities and No Drift in Lower Extremities
Data Reviewed
-
CT Head: Report Reviewed and Image Reviewed
MRI Head: Report Reviewed and Image Reviewed
MRA Head: Report Reviewed and Image Reviewed
Labs: Report Reviewed
Reviewed with: Physician, Patient and Family
Medications
-
Active Medications
Generic Name Dose Route Start Last Admin
Trade Name Freq PRN Reason Stop Dose Admin
Acetaminophen 650 mg 10/06/24 14:32
Acetaminophen 325 Mg Tablet PO 11/03/24 14:31
Q4HPRN PRN
mild pain/MISTRY/temp> 100.4F
Amlodipine Besylate 10 mg 10/07/24 08:00 10/07/24 08:07
Amlodipine 10 Mg Tablet PO 11/04/24 07:59 10 mg
DAILY ALE Administration
Aspirin 81 mg 10/06/24 11:00 10/07/24 08:08
Aspirin 81 Mg (Enteric Coated) Tablet PO 11/03/24 10:59 81 mg
DAILY ALE Administration
Bisacodyl 10 mg 10/06/24 14:32
Bisacodyl 10 Mg Rectal Suppository RECTAL 11/03/24 14:31
[id number] PRN
constipation
Chlorthalidone 25 mg 10/07/24 08:00 10/07/24 08:07
Chlorthalidone 25 Mg Tablet PO 11/04/24 07:59 25 mg
DAILY ALE Administration
Clopidogrel Bisulfate 75 mg 10/06/24 11:00 10/07/24 08:07
Clopidogrel 75 Mg Tablet PO 11/03/24 10:59 75 mg
DAILY ALE Administration
Enoxaparin Sodium 40 mg 10/06/24 18:00 10/06/24 18:12
Enoxaparin Sodium 40 Mg/0.4 Ml Syringe SC 11/03/24 17:59 40 mg
QPM ALE Administration
Ondansetron HCl 4 mg 10/06/24 14:32
Ondansetron 4 Mg/2 Ml Vial IV 11/03/24 14:31
Q6HPRN PRN
nausea and vomiting
Polyethylene Glycol 17 grams 10/06/24 14:32
Polyethylene Glycol Powder 17 Grams Packet PO 11/03/24 14:31
DAILYPRN PRN
constipation
Prednisone 20 mg 10/08/24 08:00
Prednisone 20 Mg Tablet PO 10/10/24 08:01
DAILY ALE
Prednisone 10 mg 10/11/24 08:00
Prednisone 10 Mg Tablet PO 10/13/24 08:01
DAILY ALE
Rizatriptan Benzoate 10 mg 10/07/24 12:00
Rizatriptan 10 Mg (Orally Disintegrating) Tablet PO 11/04/24 11:59
ONCE@1200 PRN
IF NO RELIEF FROM STAT DOSE
Rosuvastatin Calcium 10 mg 10/07/24 22:00
Rosuvastatin (Crestor) 10 Mg Tablet PO 11/04/24 21:59
HS ALE
Senna/Docusate Sodium 1 tablet 10/06/24 14:32
Docusate W/Senna (Grace-Colace) Tablet PO 11/03/24 14:31
BIDPRN PRN
constipation
Home Medications
�Medication �Instructions �Recorded
prednisone 10 mg tablet See Rx Instructions .Route 10/01/24
.COMPLEX #30 tabs
amlodipine 10 mg tablet (Norvasc) 10 mg PO DAILY Blood Pressure 10/06/24
chlorthalidone 25 mg tablet 25 mg PO DAILY Fluid 10/06/24
Retention/Swelling
elderberry fruit 350 mg capsule 350 mg PO DAILY Supplement 10/06/24
fluticasone propionate 50 2 spray intranasal QPM Allergies 10/06/24
mcg/actuation nasal
spray,suspension
rosuvastatin 10 mg tablet (Crestor) 10 mg PO HS High Cholesterol 10/06/24
tadalafil 5 mg tablet 5 mg PO QPM ED 10/06/24
testosterone cypionate 200 mg/mL 50 mg IM Q2W Hormonal Agent 10/06/24
intramuscular oil
therapeutic multivitamin 1 tab PO DAILY 10/06/24

Documented by User: Bubba Hills MD 10/07/24 10:58
Past History
Past History
ED Past Medical History: HTN and Hypercholesterolemia
ED Past Surgical History: Orthopedic
Social History
Tobacco: Non-smoker
Personal:
Living: with family
Employment: Employed
Family History
Family History: Other (Reviewed and noncontributory)
Medications
-
Medications:
Generic Name Dose Route Start Last Admin
Trade Name Freq PRN Reason Stop Dose Admin
Acetaminophen 650 mg 10/06/24 14:32
Acetaminophen 325 Mg Tablet PO 11/03/24 14:31
Q4HPRN PRN
mild pain/MISTRY/temp> 100.4F
Amlodipine Besylate 10 mg 10/07/24 08:00 10/07/24 08:07
Amlodipine 10 Mg Tablet PO 11/04/24 07:59 10 mg
DAILY ALE Administration
Aspirin 81 mg 10/06/24 11:00 10/07/24 08:08
Aspirin 81 Mg (Enteric Coated) Tablet PO 11/03/24 10:59 81 mg
DAILY ALE Administration
Bisacodyl 10 mg 10/06/24 14:32
Bisacodyl 10 Mg Rectal Suppository RECTAL 11/03/24 14:31
[id number] PRN
constipation
Chlorthalidone 25 mg 10/07/24 08:00 10/07/24 08:07
Chlorthalidone 25 Mg Tablet PO 11/04/24 07:59 25 mg
DAILY ALE Administration
Clopidogrel Bisulfate 75 mg 10/06/24 11:00 10/07/24 08:07
Clopidogrel 75 Mg Tablet PO 11/03/24 10:59 75 mg
DAILY ALE Administration
Enoxaparin Sodium 40 mg 10/06/24 18:00 10/06/24 18:12
Enoxaparin Sodium 40 Mg/0.4 Ml Syringe SC 11/03/24 17:59 40 mg
QPM ALE Administration
Ondansetron HCl 4 mg 10/06/24 14:32
Ondansetron 4 Mg/2 Ml Vial IV 11/03/24 14:31
Q6HPRN PRN
nausea and vomiting
Polyethylene Glycol 17 grams 10/06/24 14:32
Polyethylene Glycol Powder 17 Grams Packet PO 11/03/24 14:31
DAILYPRN PRN
constipation
Prednisone 20 mg 10/08/24 08:00
Prednisone 20 Mg Tablet PO 10/10/24 08:01
DAILY ALE
Prednisone 10 mg 10/11/24 08:00
Prednisone 10 Mg Tablet PO 10/13/24 08:01
DAILY ALE
Rizatriptan Benzoate 10 mg 10/07/24 12:00
Rizatriptan 10 Mg (Orally Disintegrating) Tablet PO 11/04/24 11:59
ONCE@1200 PRN
IF NO RELIEF FROM STAT DOSE
Rosuvastatin Calcium 10 mg 10/07/24 22:00
Rosuvastatin (Crestor) 10 Mg Tablet PO 11/04/24 21:59
HS ALE
Senna/Docusate Sodium 1 tablet 10/06/24 14:32
Docusate W/Senna (Grace-Colace) Tablet PO 11/03/24 14:31
BIDPRN PRN
constipation
[2024-10-07] MEDS: MAXALT MLT (ORALLY DISINTEGRATING) 10 MG PO (09:55)
[2024-10-07 11:05] VITALS: BP 137/80; PULSE 61; O2SAT 94
[2024-10-07 11:07] VITALS: BP 137/80; PULSE 61; O2SAT 95
[2024-10-07 11:25] VITALS: BP 119/74
[2024-10-07 11:31] LABS: C-Reactive Protein < 5.00 mg/L (0.0-10.00)
--- NOTE | 2024-10-07 12:21 | W.PN.HOSP.TC ---
Today's Communication/Plan
-
Dc home today
Assessment / Plan
Assessment / Plan
IMPRESSION:
Patient is a pleasant 64 years old with history of hypertension, hyperlipidemia, who came to the ER with increased left sided tinnitus and left eye vision changes.
Patient had upper respiratory tract infection 10 days ago, went to urgent care and prescribed antibiotic in form of Amoxil and nasal decongestion, continue to have left ear ringing, then into the ER on October 01 and prescribed 12 days of oral steroid
with no improvement, then yesterday started to have left visual changes.
07/07
MRI/MRV came back negative
Possible migraine with aura.
Advised to follow-up with neurology/ENT/pulmonology/PCP as OP
Assessment/plan:
Left visual changes/left ear tinnitus, rule out CVA
CT head done in the ER shows:
The ventricles and cortical sulci are mildly dilated. There is no shift of midline structures. There are no mass lesions or mass effect. There is no evidence of hemorrhage.
There is mucosal thickening in the right ethmoid and sphenoid sinuses. The skull appears intact.
CTA head and neck shows :
No findings to suggest carotid arterial system narrowing or hemodynamically significant stenosis bilaterally.
No findings to suggest internal carotid artery or vertebral artery dissection bilaterally.
No findings to suggest proximal intracranial arterial stenosis bilaterally.
Paranasal sinus opacification most likely chronic and most prominent involving the right maxillary sinus compatible with chronic inflammatory changes. Right maxillary sinus air-fluid level such as superimposed acute sinusitis unlikely but cannot be
entirely excluded
Admit to telemetry bed.
Frequent neurocheck.
Allow permissive hypertension.
Neurology consult.
MRI brain negative
MRV negative
Check hemoglobin A1c, fasting lipid panel.
PT/OT consult.
Aspirin/Plavix/statin
Upper respiratory tract infection
Acute on chronic sinusitis
Left-sided otitis media
Continue prednisone for now.
Patient already completed Augmentin as OP
Nasal decongestant
History of hypertension
Hold home meds for now to allow permissive hypertension.
History of hyperlipidemia
Continue statin
On testosterone injection
Next dose in October 14
History of elevated hemoglobin/RBCs
No definitive diagnosis, genetic testing were negative as outpatient as per the patient and .
Continue baby aspirin
CODE STATUS: Full code
DVT prophylaxis: Lovenox
Diet: Regular diet.
Family communication: Discussed with at bedside
Disposition: Discharge home today
Total time spent on today's encounter was 65 minutes which included time spent in counseling the patient/family regarding diagnosis and treatment plan as listed above, goals of care, and symptom management. Case was discussed with nursing staff,
specialists, and care coordinators/case management. All labs and imaging personally reviewed by me. Remainder the time spent in detailed review of previous records, lab data, imaging, and other medical provider documentation.
Anticipated Discharge: Today
Subjective/Interval History
-
Date of Service: October 07, 2024
Patient seen and examined at bedside, denies any chest pain or shortness of breath, no abdominal pain, no nausea, no vomiting, no diarrhea or constipation.
Still with left-sided blurry vision.
Objective Data
-
Labs:
Laboratory Results
10/07/24
07:04
WBC 10.8
Hgb 17.7
Hct 52.4 H
Plt Count 288
Sodium 138
Potassium 3.9
Chloride 99
Carbon Dioxide 32 H
BUN 17
Creatinine 1.1
Glucose 96
Calcium 9.4
Vital Signs:
Vital Signs
Temp Pulse Resp BP Pulse Ox
98.2 F 62 18 119/74 98
10/07/24 11:25 10/07/24 11:25 10/07/24 11:25 10/07/24 11:25 10/07/24 11:25
I&O
10/06/24 10/07/24 10/08/24
06:59 06:59 06:59
Intake Total 0 / 0
Balance 0 / 0
Physical Exam
-
General: Well Developed, Well Nourished, No Apparent Distress and Comfortable
HEENT: Normocephalic, Atraumatic, Moist Mucous Membranes, No Ptosis, PERRLA and Nose Appears Normal
Respiratory: Clear to Auscultation and Non Labored Respirations
Cardiac: Regular Rhythm and S1/S2
Breast: Deferred by me
GI: Soft, Nontender, Nondistended and Normal Bowel Sounds
Genito-urinary: No Costovertebral Tender
Musculoskeletal: No Clubbing, No Cyanosis and No Edema
Skin: Warm
Neuro: Awake, Alert, Oriented, AO x 3 and No Motor Deficits
Psych: Calm
Data Reviewed
-
Diagnostic Radiology: Image personally visualized and interpreted and Report Reviewed by me
CT Scan: Image personally visualized and interpreted and Report Reviewed by me
Ultrasound: Image personally visualized and interpreted and Report Reviewed by me
MRI: Image personally visualized and interpreted and Report Reviewed by me
Medical Tests (Nuc Med, Echo etc): Image personally visualized and interpreted and Report Reviewed by me
Labs: Labs Reviewed by me
Old Records: Reviewed
--- NOTE | 2024-10-07 12:28 | W.DCSUMMARY ---
Discharge Summary
Discharge Data
Date of Admission: 10/06/24
Date of Discharge: 10/07/24
-
Pending Results: No
Hospital Course
Hospital course
Patient is a pleasant 64 years old with history of hypertension, hyperlipidemia, who came to the ER with increased left sided tinnitus and left eye vision changes.
Patient had upper respiratory tract infection 10 days ago, went to urgent care and prescribed antibiotic in form of Amoxil and nasal decongestion, continue to have left ear ringing, then into the ER on October 01 and prescribed 12 days of oral steroid
with no improvement, then yesterday started to have left visual changes.
07/07
MRI/MRV came back negative
Possible migraine with aura.
Advised to follow-up with neurology/ENT/pulmonology/PCP as OP
During hospitalization patient was treated from the following
Left visual changes/left ear tinnitus, rule out CVA
CT head done in the ER shows:
The ventricles and cortical sulci are mildly dilated. There is no shift of midline structures. There are no mass lesions or mass effect. There is no evidence of hemorrhage.
There is mucosal thickening in the right ethmoid and sphenoid sinuses. The skull appears intact.
CTA head and neck shows :
No findings to suggest carotid arterial system narrowing or hemodynamically significant stenosis bilaterally.
No findings to suggest internal carotid artery or vertebral artery dissection bilaterally.
No findings to suggest proximal intracranial arterial stenosis bilaterally.
Paranasal sinus opacification most likely chronic and most prominent involving the right maxillary sinus compatible with chronic inflammatory changes. Right maxillary sinus air-fluid level such as superimposed acute sinusitis unlikely but cannot be
entirely excluded
Admitted to telemetry bed.
Frequent neurocheck.
Allow permissive hypertension.
Neurology consult.
MRI brain negative
MRV negative
Check hemoglobin A1c, fasting lipid panel.
PT/OT consult.
Aspirin/Plavix/statin
Upper respiratory tract infection
Acute on chronic sinusitis
Left-sided otitis media
Continue prednisone for now.
Patient already completed Augmentin as OP
Nasal decongestant
History of hypertension
Hold home meds for now to allow permissive hypertension.
History of hyperlipidemia
Continue statin
On testosterone injection
Next dose in October 14
History of elevated hemoglobin/RBCs
No definitive diagnosis, genetic testing were negative as outpatient as per the patient and .
Continue baby aspirin
CODE STATUS: Full code
DVT prophylaxis: Lovenox
Diet: Regular diet.
Family communication: Discussed with at bedside
Disposition: Discharge home today
Total time spent on today's encounter was 40 minutes which included time spent in counseling the patient/family regarding diagnosis and treatment plan as listed above, goals of care, and symptom management. Case was discussed with nursing staff,
specialists, and care coordinators/case management. All labs and imaging personally reviewed by me. Remainder the time spent in detailed review of previous records, lab data, imaging, and other medical provider documentation.
Anticipated Discharge: Today
Discharge Plan
-
Patient Disposition: Home (Routine Discharge)
Discharge Diagnosis/Procedures: Left-sided blurry vision.
Left ear ringing.
Upper respiratory tract infection
Diet: Low Cholesterol and Low Sodium
Activity: As tolerated
Driving Restrictions: As tolerated and if comfortable
Referrals:
Good Grimm DO [Family Provider, Internal Medicine] - in one week
Bubba Hlils MD [Active, Neurology] - in three to four weeks
Lashell Chauhan MD [Active, Ophthalmology] - in one to two weeks
Merrill Flor MD [Active, ENT] - in one to two weeks
Prescriptions:
New
clopidogrel 75 mg Tablet
75 mg PO DAILY Qty: 21 0RF
aspirin 81 mg Tablet,Delayed Release (Dr/Ec)
81 mg PO DAILY Qty: 30 0RF
Continued
prednisone 10 mg Tablet
See Rx Instructions .ROUTE .COMPLEX Qty: 30 0RF
Rx Instructions:
Take By Mouth:
40 mg daily x3 days, 30 mg daily x3 days,
20 mg daily x3 days, 10 mg daily x3 days.
therapeutic multivitamin Tablet
1 tab PO DAILY
chlorthalidone 25 mg Tablet
25 mg PO DAILY
amlodipine [Norvasc] 10 mg Tablet
10 mg PO DAILY
testosterone cypionate 200 mg/mL oil
50 mg IM Q2W
Rx Instructions:
the 15th and 30th of each month
rosuvastatin [Crestor] 10 mg Tablet
10 mg PO HS
tadalafil 5 mg Tablet
5 mg PO QPM
elderberry fruit 350 mg Capsule
350 mg PO DAILY
fluticasone propionate 50 mcg/actuation [place],Suspension
2 spray INTRANASAL QPM
Discharge Orders:
Discharge Patient (As Directed); Ordered 10/07/24
Ordered By: Amarilys Smith
Discharge Date and Time
Print Language: JAPANESE
--- NOTE | 2024-10-07 12:33 | PTOTSP ---
PATIENT WITH CONTINUED TINNITUS LEFT EAR AND BLURRED VISION IN LEFT EYE HOWEVER WAS INDEPENDENT WITHOUT A DEVICE ON LEVEL SURFACES WELL ELEVATIONS REQUIRING FURTHER ACUTE CARE SKILLED P.T. AT THIS TIME. WILL DISCHARGE FROM P.T. SERVICES.
--- NOTE | 2024-10-07 12:35 | PTOTSP ---
Pt presents to OT with report of agrawal area in the shape of a akhiok in central vision when looking at therapist's face; 'looks like I'm looking through a screen.' Most pronounced when looking straight ahead; less prominent when looking R and L.
Occular mobility WNL; no field cut noted. States this impaired area has not changed since it started. Pt with grossly intact cognition and good UB AROM, strength, sensation and coordination. Currently independent with all self care, functional
mobility without AD and shared home management. No further skilled OT indicated at this time.
[2024-10-07 12:38] LABS: Folate 7.6 ng/ml (2.76-20); Vitamin B12 869 pg/ml (239-931)
[2024-10-07 12:53] LABS: Ferritin 36.9 ng/ml (17.9-464.0)
--- NOTE | 2024-10-07 14:10 | CM ---
Alert awake oriented patient who lives with his Naty in a one level home with 4 steps to enter.He is independent in all ADLs .No declined VN . will drive him home.Observation letter given explained signed on chart.
No adaptive devices
No VN hx . No SNH hx
Pharmacy [facility]
PCP Dr Grimm
PLAn Home no needs
== END 2024-10-07 13:15 | disposition home or self-care (01) ==
LOC: 4 EAST ACU 13:25
PROVIDERS: Nurse Practitioner; ADMITTING PHYSICIAN General Practice; CONSULT PHYSICIAN Psychiatry & Neurology Neurology; EMERGENCY PHYSICIAN Emergency Medicine; FAMILY PHYSICIAN Internal Medicine
DX: H93.12 Tinnitus, left ear (principal); H53.8 Other visual disturbances; J06.9 Acute upper respiratory infection, unspecified; J01.90 Acute sinusitis, unspecified; J32.9 Chronic sinusitis, unspecified; H66.92 Otitis media, unspecified, left ear; E78.00 Pure hypercholesterolemia, unspecified; I10 Essential (primary) hypertension; Z79.899 Other long term (current) drug therapy
CPT/HCPCS: 70450; 70496; 70498; 70544; 70551; 80048; 80053; 80061; 82607; 82728; 82746; 84443; 85025; 85652; 86140; 93005; 97162; 97166; 99285; G0378; Q9967

== ENCOUNTER 2024-12-25 17:34 | Emergency (ER) | payer OTHER, SELFPAY ==
[2024-12-25 17:45] VITALS: BP 139/78
[2024-12-25 18:10] LABS: Hematocrit 52.9 % (39.0-52.0); Hemoglobin 17.9 g/dL (13.0-18.0); Mean Corp Hgb Conc. 33.8 g/dL (33.0-37.0); Mean Corpuscular Volume 86.3 fL (80.0-94.0); Nucleated Red Blood Cells % 0 % (-); Platelet Count 255 10^3/uL (130-400); Red Cell Dist. Width 13.9 % (11.5-14.5)
[2024-12-25 18:25] LABS: ALT (SGPT) 46 U/L (0-50); AST (SGOT) 42 U/L (17-59); Albumin 5.2 g/dl (3.5-5.0); Alkaline Phosphatase 65 U/L (38-126); Blood Urea Nitrogen 13 mg/dl (9-20); Calcium 9.6 mg/dl (8.4-10.2); Carbon Dioxide 35 mmol/L (22-30); Chloride 98 mmol/L (98-107); Glucose 118 mg/dl (70-99); Potassium 3.1 mmol/L (3.5-5.1); Sodium 139 mmol/L (135-145); Total Protein 8.0 g/dl (6.3-8.2); eGFR > 60.00
[2024-12-25 18:34] LABS: Troponin I 0.021 ng/ml
[2024-12-25 20:47] VITALS: BP 147/74
[2024-12-25 21:00] VITALS: BP 117/68
--- NOTE | 2024-12-25 21:37 | ED.GENMED ---
History of Present Illness
General
Chief Complaint: Chest Pain
Time Seen by Provider: 12/25/24 21:01
History of Present Illness
History of Present Illness:
64-year-old male presents to the emergency department for evaluation of intermittent right sided parasternal chest pain that has been ongoing for the past 5 to 6 days. Seem to be somewhat worse with inspiration however he has no pain at present.
No obvious other provoking or palliating factors. Denies shortness of breath. He was able to exert himself quite extensively yesterday during a gym workout without reproducible symptoms. No leg swelling or calf cramping
Past History
Past History
ED Past Medical History: HTN and Hypercholesterolemia
ED Past Surgical History: Orthopedic
Social History
Tobacco: Non-smoker
Personal:
Living: with family
Employment: Employed
Family History
Family History: Other (Reviewed and noncontributory)
Review of Systems
Review of Systems
Allergies reviewed?: Yes
All Other Systems: ROS reviewed and negative except as documented in HPI and ROS
Phy Exam
Physical Exam
Physical Exam:
GEN: Well appearing, NAD, WDWN
HEENT: Oral mucosa moist, no scleral icterus
Cardiac: Regular rate and rhythm, no murmurs
Lung: No respiratory distress, no tachypnea, lungs clear to auscultation
MSK: No gross deformity or injuries
Skin: Good color, no pallor or jaundice, no rashes
Neuro: AO x3, moves all extremities freely
Psych: Calm, cooperative
Scores
Heart Score for Chest Pain Patients
STEMI patient?: No
History: Slightly or Non-Suspicious
ECG: Normal
Age: >45 - <65 years
Risk Factors: 1 or 2 Risk Factors
Troponin: </= Normal Limit
Heart Score for Chest Pain Patients: 2
Heart Score Risk: 2.5% MACE over next 6 weeks
Course
Orders/Labs/Results
Orders:
Orders
12/25/24 17:35
Electrocardiogram (*1) Urgent
Reason for Study: Chest Pain
EKG- Treatment ONCE
12/25/24 17:50
IV Insert/Care/Rem.- Treatment PRN
Pulse Ox/spot Check [RESP] Urgent
Quantity: 1
Special Instructions: ON ROOM AIR
12/25/24 17:57
Complete Blood Count/With Diff Urgent
Comprehensive Metabolic Panel Urgent
Troponin I Urgent
12/25/24 21:46
D-Dimer Urgent
Abnormal Lab Results
12/25/24
17:57
RBC 6.13 H 10^6/uL
(4.70-6.10)
Hct 52.9 H %
(39.0-52.0)
Absolute Monos (auto) 0.7 H 10^3/uL
(0.1-0.6)
Potassium 3.1 L mmol/L
(3.5-5.1)
Carbon Dioxide 35 H mmol/L
(22-30)
Glucose 118 H mg/dl
(70-99)
Total Bilirubin 1.6 H mg/dl
(0.2-1.3)
Albumin 5.2 H g/dl
(3.5-5.0)
12/25/24 17:57
12/25/24 17:57
Vital Signs
Initial and Last Documented VS:
Initial Vital Signs
Temp Pulse Resp BP Pulse Ox
98.5 F 65 12 139/78 96
12/25/24 17:45 12/25/24 17:45 12/25/24 17:45 12/25/24 17:45 12/25/24 17:45
Last Documented Vital Signs
Temp Pulse Resp BP Pulse Ox
98.5 F 60 17 103/66 95
12/25/24 17:45 12/25/24 22:30 12/25/24 22:30 12/25/24 22:00 12/25/24 22:45
MDM/Problems Addressed
MDM/Problems Addressed:
Workup was reassuring, negative troponin and negative D-dimer are reassuring. The fact that the patient was able to exert himself extensively yesterday without reproduction of pain is reassuring against ACS.
*Pulse Oximetry
SaO2: 98
Oxygen Mode of Delivery: Room air
Patient hypoxic: no
*Critical Care Note
Total Time (30-74mins, 75-104mins- exclusive of procedures): Not Applicable
ED Attending Note
-
Portions of this chart may have been created with voice recognition software.� Occasional wrong word or��sound alike� substitutions may have occurred due to the inherent limitations of voice recognition software.
Discharge Plan
Departure
Patient Disposition: Home (Routine Discharge)
Date of Disposition: 12/25/24
Time of Disposition: 22:42
Patient with high blood pressure during this ER visit?: No
Discharge Problem:
Atypical chest pain
Instructions: Chest Pain That Is Not Caused by the Heart (DC)
Prescriptions:
No Action
prednisone 10 mg Tablet
See Rx Instructions .ROUTE .COMPLEX Qty: 30 0RF
Rx Instructions:
Take By Mouth:
40 mg daily x3 days, 30 mg daily x3 days,
20 mg daily x3 days, 10 mg daily x3 days.
therapeutic multivitamin Tablet
1 tab PO DAILY
chlorthalidone 25 mg Tablet
25 mg PO DAILY
amlodipine [Norvasc] 10 mg Tablet
10 mg PO DAILY
testosterone cypionate 200 mg/mL oil
50 mg IM Q2W
Rx Instructions:
the 15th and 30th of each month
rosuvastatin [Crestor] 10 mg Tablet
10 mg PO HS
tadalafil 5 mg Tablet
5 mg PO QPM
elderberry fruit 350 mg Capsule
350 mg PO DAILY
fluticasone propionate 50 mcg/actuation [place],Suspension
2 spray INTRANASAL QPM
clopidogrel 75 mg Tablet
75 mg PO DAILY Qty: 21 0RF
aspirin 81 mg Tablet,Delayed Release (Dr/Ec)
81 mg PO DAILY Qty: 30 0RF
Referrals:
UNKNOWN - PT DOES,NOT KNOW [Unknown Provider]
Interventions
Interventions:
*Risk Screen - Suicide Last Done: 12/25/24 17:45
*General Assessment Last Done: 12/25/24 17:45
*Neglect/Abuse Screening Last Done: 12/25/24 17:45
*ED- Fall Risk Assessment Last Done: 12/25/24 21:53
*ED COVID-19 Vaccine History Last Done: 12/25/24 17:45
*ED Influenza Vaccine History Last Done: 12/25/24 17:45
*Nursing Disposition Last Done: 12/25/24 22:53
ED- Cardiac Assessment Last Done: 12/25/24 21:49
Discharge Date and Time
Discharge Date/Time: 12/25/24 22:57
Print Language: GHANAIAN
[2024-12-25 21:49] VITALS: BMI 32.6
[2024-12-25 22:00] VITALS: BP 103/66
[2024-12-25 22:06] LABS: D-Dimer 0.30 ug/mlFEU (0.00-0.50)
== END 2024-12-25 22:57 | disposition home or self-care (01) ==
LOC: EMR 17:34
PROVIDERS: Emergency Medicine; Physician Assistant; EMERGENCY PHYSICIAN Emergency Medicine; FAMILY PHYSICIAN Family Medicine
DX: R07.89 Other chest pain (principal); I10 Essential (primary) hypertension; E78.00 Pure hypercholesterolemia, unspecified
CPT/HCPCS: 99284; 80053; 84484; 85025; 85379; 93005